=== PATIENT | male | born 1995 | race Caucasian/White ===

== ENCOUNTER 2020-01-07 03:01 | Emergency (ER) | payer MEDICAID, OTHER, SELFPAY | END 2020-01-07 03:52 | disposition home or self-care (01) | LOC: MADERS 03:01 | DX: M54.5 Low back pain (principal); I10 Essential (primary) hypertension; Z79.899 Other long term (current) drug therapy | CPT/HCPCS: 99281 ==

== ENCOUNTER 2025-03-10 02:27 | Emergency (ER) | payer BC ==
[2025-03-10] MEDS ORDERED: Dexamethasone 10 MG/ML VIAL ONE (02:59)
== END 2025-03-10 03:17 | disposition home or self-care (01) ==
LOC: MADERS 02:27
DX: R42 Dizziness and giddiness (principal); R29.700 NIHSS score 0; I10 Essential (primary) hypertension; E78.5 Hyperlipidemia, unspecified; Z79.899 Other long term (current) drug therapy
CPT/HCPCS: 96372; 99283; J1100